=== PATIENT | female | born 2000 | race Caucasian/White ===

== ENCOUNTER 2019-02-18 23:23 | Emergency (ER) | payer OTHER ==
[2019-02-18 23:30] VITALS: TEMP 98.6
[2019-02-19] MEDS ORDERED: ALDACTONE 25MG25 M1 (00:20)
[2019-02-19] MEDS ORDERED: PREVACID 15MG15 M1 (00:20)
[2019-02-19] MEDS ORDERED: XYZAL5 MG PO (00:20)
[2019-02-19] MEDS ORDERED: PRISTIQ25 MG (00:20)
[2019-02-19] MEDS ORDERED: DULERA1 ARO (00:21)
[2019-02-19] MEDS ORDERED: RT SPIRIVA18 MCG (00:21)
[2019-02-19] MEDS ORDERED: PROAIR HFA0.09 MG/AC IH (00:21)
[2019-02-19 01:45] VITALS: BP 125/88; PULSE 91
== END 2019-02-19 01:46 | disposition home or self-care (01) ==
LOC: COL.ER 23:23
DX: F41.9 Anxiety disorder, unspecified (principal); J45.909 Unspecified asthma, uncomplicated

== ENCOUNTER → 2020-09-05 | Outpatient (CLI) | payer OTHER ==
[~2020-09-05] MED LIST: ALDACTONE 25MG25 M1; DULERA1 ARO; PREVACID 15MG15 M1; PRISTIQ25 MG; PROAIR HFA0.09 MG/AC IH; RT SPIRIVA18 MCG; XYZAL5 MG PO
== END ==
LOC: COL.PUL 07:37
DX: J45.50 Severe persistent asthma, uncomplicated (principal)

== ENCOUNTER → 2020-10-19 | Outpatient (CLI) | payer OTHER | LOC: COL.RAD 09:26 | DX: N92.6 Irregular menstruation, unspecified (principal) ==

== ENCOUNTER → 2020-10-20 | Outpatient (CLI) | payer OTHER | LOC: COL.RAD 10:24 | DX: N92.6 Irregular menstruation, unspecified (principal) ==